=== PATIENT | male | born 1970 | race Caucasian/White ===

== ENCOUNTER 2023-08-17 12:20 | Outpatient (CLI) | payer BC, SELFPAY ==
--- NOTE | 2023-08-17 12:41 | XR_ITS ---
WS: [id number] XR knee RT 3V* [id number] REASON FOR EXAM: knee pain FINDINGS: No acute fracture. Joint spaces of the right knee are intact and well preserved. No soft tissue abnormality. IMPRESSION: No acute abnormality.
--- NOTE | 2023-08-17 13:00 | USCV_ITS ---
Corey Singer Age: 53 Gender: M : 1970 Exam Date: 08/17/2023 13:38 Ordering Phys: Ariana Birch APN Technologist: ALENA [place] [facility] [place]: RLE PAIN AND SWELLING [id number] HISTORY: Lower extremity swelling. Lower extremity pain. PROCEDURES: Venous duplex imaging was performed in only the right lower extremity. The following venous structures were evaluated: common femoral vein, profunda vein, proximal portion of the greater saphenous vein, superficial femoral vein, and the popliteal vein. In addition, the posterior tibial and peroneal trunk were evaluated. Serial compression, augmentation maneuvers, and spectral Doppler flow evaluation were performed. FINDINGS: No evidence of DVT seen in any vessel visualized at this time. CONCLUSIONS No evidence of right lower extremity DVT. Glenroy Hernandez MD (Electronically Signed) Final Date: 17 August 2023 15:34 S
== END 2023-08-17 12:21 | disposition home or self-care (01) ==
PROVIDERS: PCP Family Medicine; Referring Provider Specialist; Visit Provider Nurse Practitioner
DX: M25.561 Pain in right knee (principal); M79.89 Other specified soft tissue disorders
CPT/HCPCS: 73562; 93971